=== PATIENT | female | born 1960 | race Caucasian/White ===

== ENCOUNTER 2023-05-07 10:44 | Emergency (ER) | payer MEDICARE, OTHER ==
[~2023-05-07] VITALS: Ht 162.6 cm; Wt 70.5 kg
[2023-05-07 11:01] VITALS: BP 149/88; PULSE 79; RESP 18; TEMP 98.6
[2023-05-07] MEDS ORDERED: KETOROLAC TROMETHAMINE 30 MG/ML VIAL IM ONE (12:15)
[2023-05-07] MEDS ORDERED: CYCLOBENZAPRINE HCL 10 MG TABLET PO ONE (12:15)
[2023-05-07] MEDS ORDERED: LIDOCAINE 5% TRANSDERMAL PATCH TD ONE (12:15)
[2023-05-07] MEDS ORDERED: CYCL-448 PO (13:15)
[2023-05-07] MEDS ORDERED: IBUP-1492 PO (13:15)
[2023-05-07] MEDS ORDERED: AZIT250T9 PO (13:15)
== END 2023-05-07 13:44 | disposition home or self-care (01) ==
LOC: EMS 10:51
DX: J18.9 Pneumonia, unspecified organism (principal); M79.18 Myalgia, other site; F17.210 Nicotine dependence, cigarettes, uncomplicated
CPT/HCPCS: 99283; 71045; 96372; J1885

== ENCOUNTER 2023-10-17 02:26 | Emergency (ER) | payer MEDICARE, OTHER ==
[~2023-10-17] VITALS: Ht 162.6 cm; Wt 68.2 kg
[~2023-10-17 02:26] MED LIST: CYCL-448 PO; IBUP-1492 PO
[2023-10-17 02:49] VITALS: BP 124/80; PULSE 91; RESP 19; TEMP 100.8
[2023-10-17 03:01] LABS: COVID AG,FIA SOURCE NASAL SWAB
[2023-10-17] MEDS ORDERED: ACETAMINOPHEN 500 MG TABLET PO ONE (03:15)
[2023-10-17 03:18] LABS: SARS-COV2 (COVID) ANTIGEN,FIA Negative (Negative)
[2023-10-17 03:19] LABS: INFLUENZA TYPE A NEGATIVE FOR TYPE A (NEGATIVE); INFLUENZA TYPE B NEGATIVE FOR TYPE B (NEGATIVE)
[2023-10-17] MEDS ORDERED: LIDOCAINE/PF 1% 2 ML VIAL IM ONE (03:45)
[2023-10-17] MEDS ORDERED: CefTRIAXone SODIUM 1 GM/VIAL IM ONE (03:45)
[2023-10-17] MEDS ORDERED: AMOX500C2 PO (04:03)
[2023-10-17] MEDS ORDERED: ALBUTEROL SULFATE HFA 90 MCG/PUFF 8 GM INHALER IH ONE (04:15)
== END 2023-10-17 07:12 | disposition home or self-care (01) ==
LOC: EMS 02:27
DX: J32.9 Chronic sinusitis, unspecified (principal); F17.210 Nicotine dependence, cigarettes, uncomplicated; Z90.49 Acquired absence of other specified parts of digestive tract; Z20.822 Contact with and (suspected) exposure to COVID-19
CPT/HCPCS: 99284; 71045; 87426; 87804; 94640; 96372; J0696; J3490; J3535